=== PATIENT | female | born 1990 | race Caucasian/White ===

== ENCOUNTER 2017-03-22 20:03 | Emergency (ER) | payer OTHER ==
[~2017-03-22] VITALS: Ht 152.4 cm; Wt 59.0 kg
[2017-03-22 22:00] VITALS: BP_SYST 118
[2017-03-22] MEDS ORDERED: PREN-89 PO (23:11)
[2017-03-23 00:25] VITALS: BP_SYST 118
== END 2017-03-23 00:25 | disposition home or self-care (01) ==
LOC: SED 20:03
DX: R07.89 Other chest pain (principal)
CPT/HCPCS: 93005; 99283